=== PATIENT | male | born 1945 | race Caucasian/White ===

== ENCOUNTER → 2019-03-07 | Outpatient (CLI) | payer OTHER ==
[~2019-03-07] MED LIST: BENAZEPRIL HCL20 MG PO; CARVEDILOL12.5 MG PO; GABAPENTIN 100100 MG PO; LEVETIRACETAM750 MG PO; LIPITOR80 MG PO; PLAVIX 75 MG TA75 M1 PO; TORSEMIDE PO; TYLENOL EXTRA500 MG PO; ZYLOPRIM300 MG PO
== END | disposition home or self-care (01) ==
LOC: M.PC 04:49
DX: M17.12 Unilateral primary osteoarthritis, left knee (principal); M16.11 Unilateral primary osteoarthritis, right hip; M25.562 Pain in left knee; M25.551 Pain in right hip; G89.29 Other chronic pain; I10 Essential (primary) hypertension; D64.9 Anemia, unspecified; Z86.73 Personal history of transient ischemic attack (TIA), and cerebral infarction without residual deficits; Z88.2 Allergy status to sulfonamides; Z88.8 Allergy status to other drugs, medicaments and biological substances; Z98.890 Other specified postprocedural states; Z79.899 Other long term (current) drug therapy

== ENCOUNTER → 2019-03-14 | Outpatient (CLI) | payer OTHER | END | disposition home or self-care (01) | LOC: M.PC 05:20 | DX: M17.12 Unilateral primary osteoarthritis, left knee (principal); I10 Essential (primary) hypertension; D64.9 Anemia, unspecified; Z86.73 Personal history of transient ischemic attack (TIA), and cerebral infarction without residual deficits; Z98.1 Arthrodesis status; Z88.2 Allergy status to sulfonamides; Z88.8 Allergy status to other drugs, medicaments and biological substances; Z79.899 Other long term (current) drug therapy ==